=== PATIENT | female | born 1930 | race Caucasian/White ===

== ENCOUNTER 2018-11-28 12:42 | Emergency (ER) | payer MEDICARE, OTHER ==
[~2018-11-28] VITALS: Ht 157.5 cm; Wt 56.7 kg
[~2018-11-28 12:42] MED LIST: ACTONEL150 MG PO; ALEVE220 MG PO; ASPIR-LOW81 MG PO; AZITHROMYCIN250 MG PO; BENICAR20 MG PO; BENICAR40 MG PO; CELEBREX200 MG PO; CEPHALEXIN500 MG PO; CIPRO500 MG PO; CITRUCEL479 GM PO; CYCLOBENZAPRINE10 MG PO; DICLOFENAC SODI75 MG PO; DILAUDID4 MG PO; FLAGYL500 MG PO; HYDROMORPHONE HC4 MG PO; IBUPROFEN600 MG PO; IRON55 MG PO; LIPITOR40 MG PO; MIRALAX17 GM PO; NORCO 5-325 TA1 EACH PO; OMEGA-3 + VITA1 EAC1 PO; OMEPRAZOLE20 MG PO; OXYCODONE HCL5 MG PO; RISEDRONATE SO150 MG PO; SUCRALFATE1 GM PO; VITAMIN C500 M1 PO; XARELTO10 MG PO; ZOFRAN ODT4 MG PO; ZOFRAN ODT4 MG SL; ZOFRAN4 MG PO
[2018-11-28] MEDS ORDERED: MACULAR HEALTH1 EACH PO (13:08)
[2018-11-28] MEDS ORDERED: CELEBREX200 MG PO (13:08)
[2018-11-28] MEDS ORDERED: VITAMIN D35000 UNIT PO (13:09)
[2018-11-28] MEDS ORDERED: ULTRAM50 MG PO (15:13)
[2018-11-28] MEDS ORDERED: NORCO 5-325 TA1 EACH PO (15:13)
== END 2018-11-28 16:01 | disposition home or self-care (01) ==
LOC: ED 12:42
DX: T84.018A Broken internal joint prosthesis, other site, initial encounter (principal); S92.354A Nondisplaced fracture of fifth metatarsal bone, right foot, initial encounter for closed fracture; I10 Essential (primary) hypertension; Z90.710 Acquired absence of both cervix and uterus; Z79.899 Other long term (current) drug therapy; Z79.82 Long term (current) use of aspirin; W01.0XXA Fall on same level from slipping, tripping and stumbling without subsequent striking against object, initial encounter
CPT/HCPCS: 73030; 73630; 96374; 99283-25; J1170